=== PATIENT | female | born 1970 | race Caucasian/White ===

== ENCOUNTER 2021-10-02 01:52 | Emergency (ER) | payer OTHER, MEDICAID, SELFPAY ==
[2021-10-02 02:02] VITALS: BP 141/77; PULSE 108; RESP 16; TEMP 37; O2SAT 96; BMI 18.1
[2021-10-02 02:44] LABS: COVID19 -Nasal RAPID Negative (Negative)
--- NOTE | 2021-10-02 02:57 | DI.RAD.S_ITS ---
PROCEDURE: XR CHEST 2V INDICATIONS: COPD TECHNIQUE: 2 views of the chest were acquired. COMPARISON: None. FINDINGS: Surgical changes and devices: None. Lungs and pleura: Lungs are clear. No pleural effusions or pneumothorax. Lungs hyperinflated compatible with reported COPD. Mediastinum: Mediastinal contours are normal. Heart size is normal. Bones and chest wall: No suspicious bony abnormalities. Soft tissues appear unremarkable. IMPRESSION: No acute cardiopulmonary disease process. Dictated by: Holly Richards MD, PhD on 10/02/2021 at 8:28 Approved by: Holly Richards MD, PhD on 10/02/2021 at 8:28
--- NOTE | 2021-10-02 02:58 | ED.URI ---
HPI - URI/Sore Throat General Chief Complaint: Upper Respiratory Symptoms Stated Complaint: cough,headache, bodyache Time Seen by Provider: 10/02/21 02:34 Mode of arrival: Ambulatory History of Present Illness HPI Narrative: The patient has been ill for about 1 week. She has a headache, and frequent cough. She denies ear pressure. She denies rhinorrhea sore throat. She has no history of asthma or allergies. She is a smoker. She has never bundle inhaler, but she knows she has raspy respirations. She has no chest pain or palpitations. She denies fever, chills or sweats. She has no GI symptoms. Related Data Previous Rx's Medication Instructions Recorded amoxicillin 875 mg-potassium 1 tab PO BID #20 tab 10/02/21 clavulanate 125 mg tablet prednisone 20 mg tablet 40 mg PO DAILY 5 Days tab 10/02/21 Allergies Allergy/AdvReac Type Severity Reaction Status Date / Time No Known Drug Allergies Allergy Verified 10/02/21 02:04 Review of Systems Constitutional Constitutional: Denies chills, Reports fatigue, Denies fever(s), Reports malaise and Denies night sweats Eyes Eyes: Denies change in vision and Denies irritation ENT Ears, Nose, Mouth, and Throat: Denies vertigo and Denies dizziness Cardiovascular Cardiovascular: Denies chest pain, Denies syncope, Denies irregular heart rhythm and Reports dyspnea Respiratory Respiratory: Reports chest congestion, Reports cough and Reports dyspnea Gastrointestinal Gastrointestinal: Denies cramping and Denies nausea Integumentary/Breasts Skin/Breast: Denies rash Neurologic Neurologic: Denies vertigo, Denies dizziness and Denies syncope Endocrine Endocrine: Reports fatigue Hematologic/Lymphatic On Anticoagulants: No Patient History Medical History (Updated 10/02/21 @ 05:21 by Markus Conklin MD) No significant past medical history Surgical History (Updated 10/02/21 @ 03:02 by Markus Conklin MD) No significant past surgical history Social History Smoking Status: Current every day smoker Smoking Status: Current every day smoker Substance Use Type: does not use Exam Initial Vital Signs Initial Vital Signs: Vital Signs Temperature 98.6 F 10/02/21 02:02 Pulse Rate 108 H 10/02/21 02:02 Respiratory Rate 16 10/02/21 02:02 Blood Pressure 141/77 H 10/02/21 02:02 Pulse Oximetry 96 10/02/21 02:02 Const General: cooperative, comfortable, No acute distress and other (Frequent cough) HENMT Head: normocephalic and atraumatic Face and sinus: sinus tenderness Mouth: oral mucosae normal Throat: posterior oropharynx normal Eyes General: Yes appearance normal, both eyes and all related structures Pupils: PERRL EOM: EOM intact bilaterally Neck Neck: No lymphadenopathy Resp Effort & Inspection: normal respiratory effort Other: Diffuse wheezes bilaterally. Slight rales in the left base. Cardio Rate: regular rate Rhythm: regular rhythm Heart Sounds: S1 normal, S2 normal and no murmurs GI Inspection: normal to inspection Palpation: soft and No tender Auscultation: normal bowel sounds Back/Spine/Pelvis Back: normal to inspection and No back tenderness Skin General: no rashes or lesions noted Neuro General: patient alert, patient awake, patient oriented x3 and no focal motor deficits Extrem General: normal to inspection, no pedal edema and no calf tenderness Psych Mental Status: mental status grossly normal Course Orders Ordered: ED Orders 10/02/21 02:00 COVID19 -Nasal RAPID/Pre-Proc Stat 10/02/21 02:57 Chest [XR chest 2V] Stat Discontinued Medications Albuterol (Albuterol Hfa Prepack) 1 box MISC SEEINSTR ONE Stop: 10/02/21 03:15 Last Admin: 10/02/21 03:42 Dose: 1 box Documented by: JAYSHREE Albuterol/Ipratropium (Albuterol/Ipratropium 3 Ml Ampul) 3 ml INH NOW ONE Stop: 10/02/21 02:58 Last Admin: 10/02/21 03:06 Dose: 3 ml Documented by: [email or web address] Amoxicillin/Clavulanate Potassium (Amoxicillin/Clav 875/125 Mg) 1 tab PO NOW ONE Stop: 10/02/21 03:27 Last Admin: 10/02/21 03:41 Dose: 1 tab Documented by: JAYSHREE Prednisone (Prednisone 20 Mg Tablet) 40 mg PO NOW ONE Stop: 10/02/21 03:27 Last Admin: 10/02/21 03:41 Dose: 40 mg Documented by: JAYSHREE Vital Signs Vital signs: Vital Signs - 8 hr 10/02/21 02:02 10/02/21 03:06 Temperature 98.6 F Pulse Rate 108 H 101 H Respiratory Rate 16 16 Blood Pressure 141/77 H Pulse Oximetry 96 99 MDM - URI/Sore Throat Lab Data Labs: Lab Results 10/02/21 Range/Units 02:00 SARS-CoV-2 (PCR) Negative (Negative) Imaging Data Chest x-ray: Radiologist's Impression: Infiltrate left lower lung. COPD. [facility] Narrative Medical decision making narrative: The patient had coarse bilateral wheezes upon arrival. She improved after DuoNeb, she was trained to use albuterol inhaler. She was given prednisone and started on Augmentin. Chest x-ray reveals COPD with probably an early left lower lobe infiltrate. Vital stable, no hypoxia upon discharge. Discharge Plan Departure Patient Disposition: Home Clinical Impression: Left lower lobe pneumonia, COPD (chronic obstructive pulmonary disease) Instructions: Chronic Obstructive Pulmonary Disease, DI for Pneumonia -- Adult Activity Restrictions/Additional Instructions: You of COPD, smoker's lungs. You should quit smoking as soon as possible. Chest x-ray also just a small pneumonia. I started you on antibiotics, Augmentin 2 times daily for 10 days. Prednisone will help your lungs relaxed, 40 mg daily for 5 days. Albuterol 2 puffs every 3-4 hours as needed for cough or wheezing. Recheck with your doctor in about 2 weeks, return here if necessary. Prescriptions: New amoxicillin-pot clavulanate 875-125 mg tablet 1 tab PO BID Qty: 20 0RF prednisone 20 mg tablet 40 mg PO DAILY 5 Days 0RF Stand Alone Forms: Work Release Note
[2021-10-02 03:06] VITALS: PULSE 101; RESP 16; O2SAT 99
[2021-10-02] MEDS: ALBUTEROL/IPRATROPIUM 3 ML AMPUL INH (03:06)
[2021-10-02] MEDS: predniSONE 20 MG TABLET 40 MG PO (03:41)
[2021-10-02] MEDS: AMOXICILLIN/CLAV 875/125 MG 1 TAB PO (03:41)
[2021-10-02] MEDS: ALBUTEROL HFA PREPACK 1 BOX MISC (03:42)
[2021-10-02 05:35] VITALS: BP 126/64; PULSE 104; RESP 18; O2SAT 97
== END 2021-10-02 05:37 | disposition home or self-care (01) ==
PROVIDERS: Emergency Provider Emergency Medicine
DX: J18.9 Pneumonia, unspecified organism (principal); J44.9 Chronic obstructive pulmonary disease, unspecified; F17.200 Nicotine dependence, unspecified, uncomplicated; Z20.822 Contact with and (suspected) exposure to COVID-19
CPT/HCPCS: 71046; 87635; 94640; 99283; 99284; C9803

== ENCOUNTER 2021-12-02 21:15 | Emergency (ER) | payer OTHER, MEDICAID, SELFPAY ==
[2021-12-02 21:16] VITALS: BP 134/71; PULSE 98; RESP 18; TEMP 36.5; O2SAT 99; BMI 18.0
== END 2021-12-02 23:37 | disposition left against medical advice (07) ==
PROVIDERS: Emergency Provider Emergency Medicine
CPT/HCPCS: 99281